=== PATIENT | female | born 1970 | race American Indian/Alaskan Native ===

== ENCOUNTER 2022-04-16 05:55 | Day surgery (SDC) | payer MEDICAID ==
--- NOTE | 2022-04-16 07:27 | Anesthesia Consultation ---
Anesthesia Consult and Med Hx Date of service: 04/16/22 - Airway Anesthetic Teeth Evaluation: Good ROM Head & Neck: Adequate Mental/Hyoid Distance: Adequate Mallampati Class: Class II Intubation Access Assessment: Probably Good - Pre-Operative Health Status ASA Pre-Surgery Classification: ASA2 Proposed Anesthetic Plan: General - Pulmonary Hx Smoking: No Hx Sleep Apnea: No ([facility] PRE SCREEN LOW RISK) - Cardiovascular System Hx Hypertension: Yes (2015) - Central Nervous System Hx Psychiatric Problems: No - Endocrine Hx Thyroid Disease: Yes Hx Hypothyroidism: Yes (S/P THYROIDECTOMY FOR CANCER) - Hematic Hx Anemia: No - Other Systems Hx Cancer: Yes (thyroid CA, s/p thyroidectomy (2016), radiation)
--- NOTE | 2022-04-16 07:28 | Anesthesia Day of Surgery ---
Anesthesia Day of Surgery - Day of Surgery Patient Examined: Yes Patient H&P Reviewed: Yes Patient is NPO: Yes
[2022-04-16] MEDS ORDERED: LACTATED RINGERS 1,000 ML IV SCH (07:30)
[2022-04-16] MEDS ORDERED: HYDROmorphone 0.5 MG/0.5 ML INJ IV PRN ×2 (07:39)
[2022-04-16] MEDS ORDERED: ONDANSETRON 4 MG/2 ML INJ IV PRN (07:39)
[2022-04-16] MEDS ORDERED: fentaNYL 100 MCG/2 ML INJ ONE (07:44)
[2022-04-16] MEDS ORDERED: propofoL 200 MG/20 ML VIAL IV ONE (07:44)
[2022-04-16] MEDS ORDERED: LIDOCAINE MPF (2%) 20 MG/1 ML VIAL 5 ML ONE (07:44)
[2022-04-16] MEDS ORDERED: CELECOXIB 200 MG CAP PO NR (08:00)
[2022-04-16] MEDS ORDERED: GABAPENTIN 300 MG CAP PO NR (08:00)
[2022-04-16] MEDS ORDERED: FAMOTIDINE 20 MG/2 ML INJ IV NR (08:00)
[2022-04-16] MEDS ORDERED: MIDAZOLAM 2 MG/2 ML INJ IV NR (08:00)
[2022-04-16] MEDS ORDERED: SCOPOLAMINE TRANSDERMAL PATCH 72 HR TD NR (08:00)
[2022-04-16] MEDS ORDERED: ceFAZolin/STERILE WATER 2 GM/20 ML SYRINGE IV NR (08:45)
[2022-04-16] MEDS ORDERED: dexAMETHasone 20 MG/5 ML VIAL ONE (09:18)
[2022-04-16] MEDS ORDERED: LACTATED RINGERS 1,000 ML ONE (09:45)
--- NOTE | 2022-04-16 09:51 | Operative Report ---
Operative Report Operative Report: Date of surgery: April 16, 2022 Preop diagnosis: Cervical/uterine polyps Postop diagnosis: Same Procedure: Examination under anesthesia,hysteroscopy, D&C, polypectomy. Surgeon: Otf Cook MD Anesthesiologist: Melida CHEW Anesthesia: GA Complications: None EBL: Less than 2 cc Findings: Vitiligo involving the introitus and labia minora. A bimanual examination of the pelvis was uninformative due to taut anterior abdominal wall from abdominoplasty. A 3X.5cm mass was seen dangling from the cervical canal into the upper vagina. Upon hysteroscopy flailing polyps were seen within the uterine cavity. Procedure in detail: With permission from the abstract manager a bimanual examination was done. The cervical polyp was twisted off. The cervical canal was dilated to [place] 27. The hysteroscope was inserted. Findings are as reported. Sharp curettage was used to scrape the endometrial cavity as best as possible. A second look was done with the hysteroscope. There was no active bleeding. All instruments and sponges were recovered. Patient was taken to the recovery room in excellent condition. There were no complications. EBL was less than 2 cc.
--- NOTE | 2022-04-16 13:57 | Post Anesthesia Evaluation ---
- Post Anesthesia Evaluation Patient Participated: Yes Airway Patent: Yes Stable Respiratory Function: Yes Nausea/Vomiting: No Temp > 96.8F: Yes Pain Manageable: Yes Adequeate Hydration: Yes Anesthesia Complications: No Block Receding Appropriately: Not Applicable Patient on Ventilator: No
[2022-04-16 14:48] VITALS: BP 135/84
== END 2022-04-16 12:00 | disposition home or self-care (01) ==
LOC: OR 05:55
PROVIDERS: ATTEND Obstetrics & Gynecology
DX: N84.1 Polyp of cervix uteri (principal); I10 Essential (primary) hypertension; E03.9 Hypothyroidism, unspecified; Z79.899 Other long term (current) drug therapy; Z98.890 Other specified postprocedural states; Z85.850 Personal history of malignant neoplasm of thyroid
CPT/HCPCS: 36415; 58558; 84132; 88305; 88342; J0690; J1100; J2405; J2704; J3010; J3490; J7120